=== PATIENT | female | born 1950 | race Caucasian/White ===

== ENCOUNTER 2016-08-17 07:30 | Inpatient (IN) ==
[2016-08-13 17:23] LABS: Blood Urea Nitrogen 15 mg/dl (8-23)
[2016-08-13 17:54] LABS: Basophils # (Auto) 0.1 K/mcL (0.0-0.3); Basophils % (Auto) 1.2 % (0.0-2.0); Eosinophils # (Auto) 0.2 K/mcL (0.0-0.7); Eosinophils % (Auto) 3.5 % (0.0-7.0); Lymphocytes # (Auto) 1.9 K/mcL (1.5-4.8); Mean Cell Volume 93.9 fL (80.0-100.0); Mean Corpuscular HGB Conc 33.4 g/dL (31.0-36.0); Mean Corpuscular Hemoglobin 31.4 pg (26.0-34.0); Monocytes # (Auto) 0.9 K/mcL (0.1-0.9); Monocytes % (Auto) 13.3 % (1.0-12.0); Platelet Count 295 K/mcL (140-440); RBC 4.91 M/mcL (4.00-5.20); Red Cell Distribution Width 13.5 % (11.5-14.5)
[2016-08-16 15:51] LABS: Appearance,Urine CLEAR; Bilirubin,Urine NEG (NEG); Color,Urine YELLOW; Glucose,Urine (UA) NEGATIVE (NEG); Leukocyte Esterase,Urine NEG /uL (NEG); Nitrate,Urine NEG (NEG); Protein,Urine NEG (NEG); Specific Gravity,Urine 1.017 (1.000-1.035); Urine Blood NEG mg/dL (<0.03); Urobilinogen,Urine NEG (NEG)
[~2016-08-17 07:30] MED LIST: ACETAMINOPHEN 500 MG TABLET PO SCH; CELECOXIB 200 MG CAPSULE PO SCH; KETOROLAC 30 MG, ROPIVACAINE HCL/PF 49.5 ML, EPINEPHrine 0.5 MG, 0.9 % SODIUM CHLORIDE ... IJ ONE; PREGABALIN 75 MG CAPSULE PO SCH; ceFAZolin 1 GM VIAL IV SCH; oxyCODONE 10 MG TAB.ER.12H PO SCH
[2016-08-17] MEDS ORDERED: GENTAMICIN SULFATE 800 MG/20 ML VIAL IR ONE (11:09)
[2016-08-17] MEDS ORDERED: LIDOCAINE HCL/PF 100 MG/5 ML SYRINGE IV ONE (11:25)
[2016-08-17] MEDS ORDERED: ONDANSETRON 4 MG/2 ML VIAL IV ONE (11:25)
[2016-08-17] MEDS ORDERED: DEXAMETHASONE 10 MG/ML VIAL IV ONE (11:25)
[2016-08-17] MEDS ORDERED: PROPOFOL 200 MG/20 ML VIAL IV ONE (11:25)
[2016-08-17] MEDS ORDERED: ROPIVACAINE HCL/PF 30 ML VIAL IJ ONE (11:25)
[2016-08-17] MEDS ORDERED: ePHEDrine 50 MG/ML AMPUL IV ONE (11:25)
[2016-08-17] MEDS ORDERED: MIDAZOLAM 5 MG/5 ML VIAL IV ONE (11:25)
[2016-08-17] MEDS ORDERED: TRANEXAMIC ACID 1,000 MG/10 ML VIAL IV ONE ×2 (11:25→13:19)
[2016-08-17] MEDS ORDERED: MEPERIDINE 25 MG/ML SYRINGE IV PRN (13:02)
[2016-08-17] MEDS ORDERED: ePHEDrine 50 MG/ML AMPUL IV PRN (13:02)
[2016-08-17] MEDS ORDERED: fentaNYL 100 MCG/2 ML VIAL IV PRN (13:02)
[2016-08-17] MEDS ORDERED: BENZOCAINE/MENTHOL 1 LOZENGE PO PRN ×2 (13:02→13:19)
[2016-08-17] MEDS ORDERED: diphenhydrAMINE 50 MG/ML VIAL IV PRN (13:02)
[2016-08-17] MEDS ORDERED: FLUMAZENIL 0.1 MG/ML ML IV PRN (13:02)
[2016-08-17] MEDS ORDERED: METOPROLOL TARTRATE 5 MG/5 ML VIAL IV PRN (13:02)
[2016-08-17] MEDS ORDERED: METHOCARBAMOL 1,000 MG/10 ML VIAL IV PRN (13:02)
[2016-08-17] MEDS ORDERED: ONDANSETRON 4 MG/2 ML VIAL IV PRN ×2 (13:02→13:19)
[2016-08-17] MEDS ORDERED: HYDROmorphone 2 MG/ML SYRINGE IV PRN ×2 (13:02→13:19)
[2016-08-17] MEDS ORDERED: NALOXONE HCL 0.4 MG/ML VIAL IV PRN (13:02)
[2016-08-17] MEDS ORDERED: ATROPINE SULFATE 0.4 MG/ML VIAL IV PRN (13:02)
[2016-08-17] MEDS ORDERED: IPRATROPIUM/ALBUTEROL 3 ML AMPUL.NEB NEB PRN (13:02)
[2016-08-17] MEDS ORDERED: LACTATED RINGERS 1,000 ML IV SCH (13:15)
[2016-08-17] MEDS ORDERED: BISACODYL 10 MG SUPP.RECT PR PRN (13:19)
[2016-08-17] MEDS ORDERED: TEMAZEPAM 15 MG CAPSULE PO PRN (13:19)
[2016-08-17] MEDS ORDERED: FLEETS ADULT ENEMA PR PRN (13:19)
[2016-08-17] MEDS ORDERED: POLYETHYLENE GLYCOL 3350 17 GM PACKET PO PRN (13:19)
[2016-08-17] MEDS ORDERED: ACETAMINOPHEN 325 MG TABLET PO PRN (13:19)
[2016-08-17] MEDS ORDERED: MAGNESIUM HYDROXIDE 30 ML ORAL.SUSP PO PRN (13:19)
--- NOTE | 2016-08-17 13:19 | Brief Operative Note ---
Date of procedure: 08/17/16 Pre-op diagnosis: RIGHT KNEE DJD SEVERE 3 COMP Post-op diagnosis: same Procedure: RIGHT ROBOTIC TKA Grafts/Implants: Yes Anesthesia: GETA Complications: none Surgeon: Pb Dow Upholstery Trimmer: Eduardo Parker Estimated blood loss (cc): 20 Tourniquet Time (Minutes): 60 Specimens Removed/Pathology: none sent Condition: stable Disposition: PACU
--- NOTE | 2016-08-17 14:03 | XRay Report ---
CLINICAL INFORMATION: Postsurgical follow-up TECHNIQUE: AP and crosstable lateral right knee COMPARISON: None. FINDINGS: Status post right total knee arthroplasty. Alignment is anatomic. There is postsurgical intra-articular and soft tissue gas IMPRESSION: Status post right total knee arthroplasty Interpreted and Authenticated by: Don Ocasio 08/17/16
[2016-08-17] MEDS: 0.45 % SODIUM CHLORIDE 1,000 ML IV SCH ×2 (14:20→23:57)
[2016-08-17] MEDS: 0.9 % SODIUM CHLORIDE 10 ML SYRINGE IV SCH ×2 (14:20→20:55)
--- NOTE | 2016-08-17 14:20 | Operative Note ---
DATE OF OPERATION: 08/17/2016 PREOPERATIVE DIAGNOSIS: Right knee degenerative arthritis of all three compartments. POSTOPERATIVE DIAGNOSIS: Right knee degenerative arthritis of all three compartments. PROCEDURE: Right total knee arthroplasty using FABRIZIO robot with cemented components. SURGEON: Pb Dow MD SNACK BAR ATTENDANT: Eduardo Parker PA-C ANESTHESIA: General LMA anesthesia. COMPLICATIONS: None. TOURNIQUET TIME: 60 minutes. ESTIMATED BLOOD LOSS: About 50 mL IMPLANTS PLACED: Size 3 femur, size 4 tibial baseplate with an 11 mm poly insert with a 33 mm patellar button. DESCRIPTION OF PROCEDURE: The patient was brought to the operating room and put to sleep with general LMA anesthesia. Once asleep, the patient had the right leg sterilely prepped and draped in the usual sterile fashion. The tourniquet was inflated to 250 pounds of pressure. We confirmed the operative site. Preop antibiotics were given as well as tranexamic acid. We made a midline incision and mid vastus approach performed. Ioban had been placed over the skin to isolate it from the operative field. We exposed the joint showing severe arthritis through the medial, anterior and lateral compartments. The ACL and PCL were intact. The menisci were torn and severe bone on bone contact throughout with large spurs both medial and laterally and in the patellofemoral joint. At this point, we proceeded with the total knee arthroplasty. With this we brought in 2 arrays above and below the knee to register the center of hip rotation with the robot, 30 points on the femur, 30 points on the tibia were done. We registered intra-articular pins, balanced the knee both in flexion and extension, balancing these gaps by rotating the component appropriately. Once this was done, we then released a little bit of the medial collateral ligament because of the varus deformity. Once perfectly balanced and we had removed osteophytes, we then brought the robot in. It was registered and then we made our distal femoral cut and our posterior chamfer cut. We changed the saw blade and made the anterior, posterior cuts and anterior chamfer cut. Then, the proximal tibial cut was made. Once we registered the tibia and robot once more. Once all the bony fragments had been cut, the robot was removed. We then removed the bony fragments and punched into place the tibial baseplate using the rotation on the robot. Once this was perfectly set for rotation, we then removed osteophytes posteriorly on the femur. Remnants of the meniscus were removed and then we placed a size 3 femur and size 4 tibial baseplate with an 11 mm poly. The patella was taken from a 22 mm thick patella to 12 mm in total thickness and cemented onto place a 33 mm patellar button with a small chamfer cut laterally. We irrigated thoroughly. This seemed to fit very nicely, balanced in both flexion and extension. We trialed the 9, but this was too loose. The 11 was perfectly balanced, both flexed and extension, and mid flexion. We irrigated thoroughly. The patella tracked well. We then cemented into place a 4 tibial baseplate, 3 femur and 11 mm poly was inserted, a 33 mm to mm patellar button. We irrigated and deflated the tourniquet at 60 minutes, kept the knee at 45 degrees of position, removed the pins from the leg. We closed the portals with 4-0 nylon, controlled bleeding within the knee with Bovie and rechecked for loose pieces of cement, which were removed. We then closed the mid vastus approach with #2 FiberWire and double-armed #1 Maxon, interlocking stitch was also run. We then closed the skin with 2-0 Vicryl and a standard skin closure with adhesive closure. The patient tolerated this well. Sterile bandage was applied. KORI:chris Job ID: [id number] Doc ID: [id number] Pb Dow MD
--- NOTE | 2016-08-17 15:23 | Discharge Summary ---
Ortho Discharge - TKA - Patient Instructions Diet: Regular Diet Activity: activity as tolerated, weight bearing as tolerated Total Knee Protocol: For Total Knee: Start ROM BETTE with stationary bike or rocking chair. Work on gaining full extension of knee. Posterior dislocation precautions provided. Hip abductor strengthening and gait training instructions provided. Apply Cryocuff as instructed. Dressing Care: May shower in 2 days - Follow Up Plan Disposition: Home, Self-Care Prognosis: Good Rehab Potential: Good I certify that the patient requires SNF services: No Overall status at discharge: patient is progressing back to baseline - Orders For Discharge Prescriptions: Aspirin [Ecotrin] 325 mg PO BID #60 tab.ec Docusate Sodium [Colace] 100 mg PO BID #60 capsule HYDROcodone/APAP 10/325MG [Martinez 10/325Mg] 1 - 2 tab PO Q4HP PRN #75 tablet PRN Reason: Pain
[2016-08-17] MEDS: NABUMETONE 500 MG TABLET PO SCH (18:32)
[2016-08-17] MEDS: KETOROLAC 15 MG/ML VIAL IV SCH ×2 (18:32→23:57)
[2016-08-17] MEDS: ceFAZolin 1 GM VIAL IV SCH (19:00)
[2016-08-17] MEDS: ASPIRIN 325 MG ENTERIC COATED TABLET PO SCH (20:54)
[2016-08-17] MEDS: DOCUSATE SODIUM 100 MG CAPSULE PO SCH (20:54)
[2016-08-17] MEDS: CALCIUM (OYSTER SHELL) 500 MG TABLET PO SCH (20:54)
[2016-08-17] MEDS: HYDROcodone/APAP 10/325MG TABLET PO PRN (20:54)
[2016-08-17] MEDS: VITAMIN D3 1,000 UNIT TABLET PO SCH (20:54)
[2016-08-17] MEDS ORDERED: SENNOSIDES 1 TABLET PO SCH (21:00)
[2016-08-18] MEDS: ceFAZolin 1 GM VIAL IV SCH (02:44)
[2016-08-18] MEDS: KETOROLAC 15 MG/ML VIAL IV SCH ×2 (05:21→11:33)
[2016-08-18] MEDS: 0.9 % SODIUM CHLORIDE 10 ML SYRINGE IV SCH (05:21)
--- NOTE | 2016-08-18 07:09 | Orthopedic Progress Note ---
Subjective Patient information: Note initiated : 08/18/16 at 7:08 am Service Date, if different from initiated Date: [] Patient: Hiwot Wallace 65 y/o F admitted on 08/17/16 for Right Total Knee Arthroplasty Robotic. Chief Complaint: [Pt is stable this morning on post operative day 1 without any significant concerns or complaints. Patients vital signs have remained stable. Patients dressing is dry and exhibits a grossly intact neurovascular and neuromotor exam. Patients 10 point ROS is otherwise negative. ] Objective Vital signs: Vital Signs Temp Pulse Pulse Resp BP BP Pulse Ox 08/18/16 06:59 96.7 F L 18 129/77 96 08/18/16 04:22 95 08/18/16 03:14 98.3 F 76 12 122/76 96 08/18/16 00:07 97.7 F 78 12 127/78 93 08/18/16 00:06 93 08/17/16 21:04 91 08/17/16 19:37 98.2 F 85 12 135/87 95 08/17/16 17:59 77 138/87 97 08/17/16 17:19 97 08/17/16 16:12 77 138/87 97 08/17/16 15:57 75 132/86 96 08/17/16 15:42 81 81 133/84 96 08/17/16 15:27 72 141/88 96 08/17/16 15:12 79 131/83 96 08/17/16 14:57 77 134/82 96 08/17/16 14:50 96 08/17/16 14:42 74 130/82 95 08/17/16 14:27 76 133/84 94 08/17/16 14:13 77 133/82 97 08/17/16 14:01 97.8 F 72 14 117/67 93 08/17/16 13:49 79 12 126/75 94 08/17/16 13:33 97.0 F L 87 14 113/84 93 08/17/16 13:19 95 08/17/16 09:32 98.0 F 95 H 18 135/90 95 Intake and Output 08/17/16 08/18/16 08/18/16 21:59 05:59 13:59 Intake Total 240 / 240 350 / 350 180 / 180 Output Total 1150 / 1150 475 / 475 500 / 500 Balance -910 / -910 -125 / -125 -320 / -320 Intake: Oral 240 / 240 350 / 350 180 / 180 Output: Urine Catheter Amount 1150 / 1150 475 / 475 500 / 500 Other: Meal Dinner Percent of Meal Consumed 100% Feeding Ability Independent Weight 238 lb 8 oz Intake & Output: Intake & Output 08/17/16 08/18/16 08/18/16 21:59 05:59 13:59 Intake Total 240 / 240 350 / 350 180 / 180 Output Total 1150 / 1150 475 / 475 500 / 500 Balance -910 / -910 -125 / -125 -320 / -320 Weight 238 lb 8 oz Intake: Oral 240 / 240 350 / 350 180 / 180 Output: Urine Catheter Amount 1150 / 1150 475 / 475 500 / 500 Other: Meal Dinner Percent of Meal Consumed 100% Feeding Ability Independent Incision: Yes healing Incision clean and dry: Yes Dressing: Yes clean, Yes dry Weight bearing status: full Neurological exam IM: Yes motor sensory intact, Yes neurovascular intact Extremities exam IM: Yes Foot pink and warm, Yes neurovascular intact - Labs CBC & BMP: 08/18/16 05:12 08/13/16 14:41 Labs: Orthopedic Labs 08/13/16 14:41 PT 13.6 INR 1.0 APTT 30 08/18/16 08/13/16 05:12 14:41 Hgb 15.4 H Hct 38.7 46.1 Assessment and Plan (1) Hx of total knee arthroplasty Patient has been educated regarding wound care and dressings, follow up recommendations, and medication use. We will f/u with the patient within 2-3 weeks for wound check. Status: Acute
[2016-08-18] MEDS: DOCUSATE SODIUM 100 MG CAPSULE PO SCH (08:07)
[2016-08-18] MEDS: HYDROcodone/APAP 10/325MG TABLET PO PRN ×2 (08:07→12:35)
[2016-08-18] MEDS: CALCIUM (OYSTER SHELL) 500 MG TABLET PO SCH (08:08)
[2016-08-18] MEDS: ASPIRIN 325 MG ENTERIC COATED TABLET PO SCH (08:08)
[2016-08-18] MEDS: VITAMIN D3 1,000 UNIT TABLET PO SCH (08:08)
[2016-08-18] MEDS: NABUMETONE 500 MG TABLET PO SCH (08:11)
[2016-08-18] MEDS ORDERED: HYDROCHLOROTHIAZIDE 25 MG TABLET PO SCH (09:00)
== END 2016-08-18 14:30 | disposition home or self-care (01) | DRG 470 ==
LOC: MEDSUR 09:02
PROVIDERS: ADMIT Orthopaedic Surgery; ATTEND Orthopaedic Surgery

== ENCOUNTER 2016-11-01 08:47 | Inpatient (IN) ==
[2016-10-28 15:01] LABS: Basophils # (Auto) 0.1 K/mcL (0.0-0.3); Eosinophils # (Auto) 0.2 K/mcL (0.0-0.7); Eosinophils % (Auto) 2.5 % (0.0-7.0); Granulocytes % (Auto) 59.4 % (38.0-78.0); Lymphocytes # (Auto) 1.6 K/mcL (1.5-4.8); Lymphocytes % (Auto) 22.8 % (15.5-49.0); Mean Cell Volume 94.7 fL (80.0-100.0); Mean Corpuscular HGB Conc 33.4 g/dL (31.0-36.0); Mean Corpuscular Hemoglobin 31.6 pg (26.0-34.0); Monocytes % (Auto) 14.3 % (1.0-12.0); Platelet Count 275 K/mcL (140-440); RBC 4.94 M/mcL (4.00-5.20); Red Cell Distribution Width 13.6 % (11.5-14.5)
[2016-10-28 15:09] LABS: Blood Urea Nitrogen 14 mg/dl (8-23)
[2016-10-28 15:24] LABS: Appearance,Urine CLEAR; Bilirubin,Urine NEG (NEG); Color,Urine STRAW; Glucose,Urine (UA) NEGATIVE (NEG); Leukocyte Esterase,Urine NEG /uL (NEG); Nitrate,Urine NEG (NEG); Protein,Urine NEG (NEG); Specific Gravity,Urine 1.004 (1.000-1.035); Urine Blood NEG mg/dL (<0.03); Urobilinogen,Urine NEG (NEG)
[~2016-11-01 08:47] MED LIST changes: -KETOROLAC 30 MG, ROPIVACAINE HCL/PF 49.5 ML, EPINEPHrine 0.5 MG, 0.9 % SODIUM CHLORIDE ... IJ ONE; +KETOROLAC 30 MG, ROPIVACAINE HCL/PF 49.5 ML, EPINEPHrine 0.5 MG, 0.9 % SODIUM CHLORIDE ... IJ SCH
[2016-11-01] MEDS ORDERED: TRANEXAMIC ACID 1,000 MG/10 ML VIAL IV ONE ×2 (12:40→14:23)
[2016-11-01] MEDS ORDERED: ONDANSETRON 4 MG/2 ML VIAL IV ONE (12:40)
[2016-11-01] MEDS ORDERED: MIDAZOLAM 2 MG/2 ML VIAL IV ONE (12:40)
[2016-11-01] MEDS ORDERED: PHENYLEPHRINE 10 MG/ML VIAL IV ONE (12:40)
[2016-11-01] MEDS ORDERED: ePHEDrine 50 MG/ML AMPUL IV ONE (12:40)
[2016-11-01] MEDS ORDERED: ROPIVACAINE HCL/PF 20 ML VIAL IJ ONE (12:40)
[2016-11-01] MEDS ORDERED: GLYCOPYRROLATE 0.2 MG/ML VIAL IV ONE (12:40)
[2016-11-01] MEDS ORDERED: LIDOCAINE HCL/PF 100 MG/5 ML SYRINGE IV ONE (12:40)
[2016-11-01] MEDS ORDERED: KETAMINE 100 MG/ML ML IV ONE (12:40)
[2016-11-01] MEDS ORDERED: PROPOFOL 200 MG/20 ML VIAL IV ONE (12:40)
[2016-11-01] MEDS ORDERED: GENTAMICIN SULFATE 800 MG/20 ML VIAL IR ONE (13:06)
[2016-11-01] MEDS ORDERED: HYDROcodone/APAP 10/325MG TABLET PO PRN (14:23)
[2016-11-01] MEDS ORDERED: HYDROmorphone 2 MG/ML SYRINGE IV PRN (14:23)
[2016-11-01] MEDS ORDERED: BENZOCAINE/MENTHOL 1 LOZENGE PO PRN ×2 (14:23→14:28)
[2016-11-01] MEDS ORDERED: ONDANSETRON 4 MG/2 ML VIAL IV PRN ×2 (14:23→14:28)
[2016-11-01] MEDS ORDERED: BISACODYL 10 MG SUPP.RECT PR PRN (14:23)
[2016-11-01] MEDS ORDERED: MAGNESIUM HYDROXIDE 30 ML ORAL.SUSP PO PRN (14:23)
[2016-11-01] MEDS ORDERED: POLYETHYLENE GLYCOL 3350 17 GM PACKET PO PRN (14:23)
[2016-11-01] MEDS ORDERED: ACETAMINOPHEN 325 MG TABLET PO PRN (14:23)
[2016-11-01] MEDS ORDERED: TEMAZEPAM 15 MG CAPSULE PO PRN (14:23)
[2016-11-01] MEDS ORDERED: FLEETS ADULT ENEMA PR PRN (14:23)
[2016-11-01] MEDS ORDERED: METHOCARBAMOL 1,000 MG/10 ML VIAL IV PRN (14:28)
[2016-11-01] MEDS ORDERED: fentaNYL 100 MCG/2 ML VIAL IV PRN (14:28)
[2016-11-01] MEDS ORDERED: MEPERIDINE 25 MG/ML SYRINGE IV PRN (14:28)
[2016-11-01] MEDS ORDERED: IPRATROPIUM/ALBUTEROL 3 ML AMPUL.NEB NEB PRN (14:28)
[2016-11-01] MEDS ORDERED: LACTATED RINGERS 1,000 ML IV SCH (14:30)
[2016-11-01] MEDS: 0.45 % SODIUM CHLORIDE 1,000 ML IV SCH (15:42)
--- NOTE | 2016-11-01 15:44 | XRay Report ---
CLINICAL INFORMATION: Reason for Exam:Post-Op Total Knee COMPARISON: None. FINDINGS: Total knee prostheses is anatomically aligned. No osseous abnormality. Periarticular soft tissue swelling - seen as expected. IMPRESSION: Interpreted and Authenticated by: Don Dudley 11/01/16
[2016-11-01] MEDS: KETOROLAC 15 MG/ML VIAL IV SCH (17:33)
--- NOTE | 2016-11-01 18:05 | Brief Operative Note ---
Date of procedure: 11/01/16 Pre-op diagnosis: left knee djd severe Post-op diagnosis: same Procedure: left TKA Robot Grafts/Implants: Yes Anesthesia: ZANDER Surgeon: Pb Dow Exceptional Student Education Teacher: Jeremy Damon Estimated blood loss (cc): 20 Tourniquet Time (Minutes): 65 Specimens Removed/Pathology: none sent Condition: stable Disposition: PACU
[2016-11-01] MEDS ORDERED: SENNOSIDES 1 TABLET PO SCH (21:00)
[2016-11-01] MEDS: DOCUSATE SODIUM 100 MG CAPSULE PO SCH (21:16)
[2016-11-01] MEDS: ASPIRIN 325 MG ENTERIC COATED TABLET PO SCH (21:16)
[2016-11-02] MEDS: KETOROLAC 15 MG/ML VIAL IV SCH ×3 (00:06→11:34)
[2016-11-02] MEDS: 0.45 % SODIUM CHLORIDE 1,000 ML IV SCH ×2 (00:06→11:05)
[2016-11-02] MEDS: 0.9 % SODIUM CHLORIDE 10 ML SYRINGE IV SCH ×3 (00:13→14:49)
--- NOTE | 2016-11-02 07:47 | Discharge Summary ---
Ortho Discharge - TKA - Patient Instructions Diet: Regular Diet Activity: activity as tolerated, weight bearing as tolerated Total Knee Protocol: For Total Knee: Start ROM BETTE with stationary bike or rocking chair. Work on gaining full extension of knee. Posterior dislocation precautions provided. Hip abductor strengthening and gait training instructions provided. Apply Cryocuff as instructed. Dressing Care: Aquacel Ag - leave on for 5 days Additional Instructions: CMP for home use - Follow Up Plan Follow Up Appointments: Pb Dow MD [Physician] - 11/16/16 2:20 pm Disposition: Home, Self-Care Prognosis: Good Rehab Potential: Good I certify that the patient requires SNF services: No Overall status at discharge: patient is progressing back to baseline - Orders For Discharge Additional Discharge Orders: Physical Therapy at Discharge - TKA Location: Determined By Patient Toilet Riser Discharge Order Location: Determined By Patient Walker Location: Determined By Patient
--- NOTE | 2016-11-02 07:54 | Orthopedic Progress Note ---
Subjective Patient information: Note initiated : 11/02/16 at 7:52 am Service Date, if different from initiated Date: [] Patient: Hiwot Wallace 65 y/o F admitted on 11/01/16 for Left Total Knee Arthroplasty - Jens. Chief Complaint: []doing well and no chest pain and no sob Objective Vital signs: Vital Signs Temp Pulse Resp BP BP Pulse Ox 11/02/16 07:12 97.9 F 18 110/71 94 11/02/16 04:00 98.5 F 75 12 101/66 95 11/02/16 02:00 96 11/02/16 00:00 97.6 F 75 12 110/71 99 11/01/16 20:00 96.4 F L 84 12 132/84 96 11/01/16 18:23 90 11/01/16 16:20 98 11/01/16 16:05 75 96 11/01/16 15:50 80 97/62 97 11/01/16 15:35 100/64 96 11/01/16 15:30 89 16 96 11/01/16 15:27 97.9 F 84 16 103/61 94 11/01/16 15:14 84 19 104/66 92 11/01/16 14:59 91 H 16 100/59 92 11/01/16 14:54 84 17 106/64 94 11/01/16 14:44 98.1 F 96 H 21 111/69 99 11/01/16 08:52 97.7 F 20 141/98 96 11/01/16 08:47 20 Intake and Output 11/01/16 11/02/16 11/02/16 21:59 05:59 13:59 Intake Total 100 / 100 1090 / 1090 600 / 600 Output Total 400 / 400 400 / 400 450 / 450 Balance -300 / -300 690 / 690 150 / 150 Intake: IV 100 / 100 840 / 840 Sodium Chloride 0.45% 1, 840 / 840 000 ml @ 100 mls/hr IV . Q10H JAZZY Rx#:[id number] Oral 250 / 250 600 / 600 Output: Void Amount 400 / 400 400 / 400 450 / 450 Other: # Voids 1 1 1 Weight 241 lb 6.4 oz Intake & Output: Intake & Output 11/01/16 11/02/16 11/02/16 21:59 05:59 13:59 Intake Total 100 / 100 1090 / 1090 600 / 600 Output Total 400 / 400 400 / 400 450 / 450 Balance -300 / -300 690 / 690 150 / 150 Weight 241 lb 6.4 oz Intake: IV 100 / 100 840 / 840 Sodium Chloride 0.45% 1, 840 / 840 000 ml @ 100 mls/hr IV . Q10H JAZZY Rx#:[id number] Oral 250 / 250 600 / 600 Output: Void Amount 400 / 400 400 / 400 450 / 450 Other: # Voids 1 1 1 Incision: Yes healing Incision clean and dry: Yes Dressing: Yes clean Weight bearing status: full Neurological exam IM: Yes oriented X3, Yes neurovascular intact Extremities exam IM: Yes Foot pink and warm (will need cpm for home use), Yes neurovascular intact - Labs CBC & BMP: 11/02/16 04:30 10/28/16 13:35 Labs: Orthopedic Labs 10/28/16 13:35 PT 13.6 INR 1.0 APTT 31 11/02/16 10/28/16 04:30 13:35 Hgb 15.6 H Hct 38.7 46.7
--- NOTE | 2016-11-02 07:55 | Discharge Summary ---
Ortho Discharge - TKA - Patient Instructions Diet: Regular Diet Activity: activity as tolerated, weight bearing as tolerated Total Knee Protocol: For Total Knee: Start ROM BETTE with stationary bike or rocking chair. Work on gaining full extension of knee. Posterior dislocation precautions provided. Hip abductor strengthening and gait training instructions provided. Apply Cryocuff as instructed. Dressing Care: Aquacel Ag - leave on for 5 days Additional Instructions: CMP for home use - Follow Up Plan Follow Up Appointments: Pb Dow MD [Physician] - 11/16/16 2:20 pm Disposition: Home, Self-Care Prognosis: Good Rehab Potential: Good I certify that the patient requires SNF services: No Overall status at discharge: patient is progressing back to baseline - Orders For Discharge Prescriptions: Aspirin [Ecotrin] 325 mg PO BID #28 tab.ec HYDROcodone/APAP 10/325MG [Pep 10/325Mg] 1 - 2 tab PO Q4H PRN #60 tablet PRN Reason: Pain Additional Discharge Orders: Physical Therapy at Discharge - TKA Location: Determined By Patient CPM Discharge Order Location: Determined By Patient Toilet Riser Discharge Order Location: Determined By Patient Walker Location: Determined By Patient
[2016-11-02] MEDS: DOCUSATE SODIUM 100 MG CAPSULE PO SCH (08:45)
[2016-11-02] MEDS: ASPIRIN 325 MG ENTERIC COATED TABLET PO SCH (08:45)
--- NOTE | 2016-11-08 09:19 | Operative Note ---
DATE OF OPERATION: 11/01/2016 PREOPERATIVE DIAGNOSIS: Left knee degenerative arthritis in all three compartments, severe. POSTOPERATIVE DIAGNOSIS: Left knee degenerative arthritis in all three compartments, severe. PROCEDURE: Left total knee arthroplasty using the FABRIZIO robot. IMPLANTS: [facility] robotic total knee. SURGEON: Pb Dow MD REVIEW ASSISTANT: Jeremy Damon PA-C ANESTHESIA: General LMA. TOURNIQUET TIME: 65 minutes. ESTIMATED BLOOD LOSS: 25 mL CONDITION: Stable. DISPOSITION: To PACU. DESCRIPTION OF PROCEDURE: The patient was brought to the operating room and put to sleep with general LMA anesthesia. Once asleep, the patient's left leg was sterilely prepped and draped in the usual sterile fashion, and confirmed as the operative site with a timeout. We made a midline incision, a mid vastus approach performed. We inspected all compartments of the knee, which showed severe arthritis throughout all three compartments with a prior torn ACL. At this point we proceeded with a total knee arthroplasty using the FABRIZIO robot, so two pins above and below the knee were placed with arrays. Center of hip rotation was performed, 30 points on the femur and the tibia, and balanced the knee. Two pins within knee, one on the femur and one on the tibia were registered. ___ ___ ___ ___ ___ Once this was done, we then irrigated thoroughly and ___ ___ The patella was measured at 22 mm in thickness and this was cut to ___ __ ___ ___and placed a __ mm poly, took the knee into extension and prepared the patella, placing a 36 mm patella button. Once this was done, we irrigated thoroughly and tested the knee for stability and balance. The final poly inset was selected and placed. Excess cement and any loose bodies were removed. We then flushed the knee at third time and closed the mid vastus approach with #1 Stratafix. We closed the superior portion with #1 Vicryl and closed the skin with 2-0 Vicryl, and then adhesive closure. Patient tolerated this well. There were no complications. Tourniquet time was 65 minutes. RBH:lesvia Job ID: [id number] Doc ID: [id number] Pb Dow MD
== END 2016-11-02 15:10 | disposition home or self-care (01) | DRG 470 ==
LOC: MEDSUR 08:47
PROVIDERS: ADMIT Orthopaedic Surgery; ATTEND Orthopaedic Surgery